=== PATIENT | female | born 1950 | race Hispanic/Latino ===

== ENCOUNTER 2021-02-09 10:40 | Outpatient (CLI) | payer MEDICARE, OTHER | END 2021-02-09 10:41 | disposition home or self-care (01) | LOC: CSHULT 10:40 | PROVIDERS: ATTEND Internal Medicine Nephrology | DX: N18.1 Chronic kidney disease, stage 1 (principal); Q61.9 Cystic kidney disease, unspecified | CPT/HCPCS: 76770 ==

== ENCOUNTER 2021-08-12 16:02 | Observation (INO) | payer MEDICARE, OTHER ==
[2021-08-12] MEDS ORDERED: Nitroglycerin 0.4 MG TAB (25 Tab Bottle) SL PRN (17:24)
[2021-08-12] MEDS ORDERED: Ondansetron ODT 4 MG TAB PO PRN (17:29)
[2021-08-12] MEDS ORDERED: Acetaminophen 325 MG TAB PO PRN (17:29)
[2021-08-12] MEDS ORDERED: Ondansetron PF 4 MG/2 ML Vial IVP PRN (17:29)
[2021-08-12 18:33] VITALS: BMI 27.3
[2021-08-12 19:06] LABS: Lipase 76 U/L (8-78); Magnesium 2.2 mg/dL (1.6-2.6)
[2021-08-12 19:12] LABS: Troponin I Less than 0.010 ng/mL (< 0.028)
[2021-08-12] MEDS: HYDROcodone/Acetaminophen 5/325 mg Tablet PO PRN (20:32)
[2021-08-12] MEDS ORDERED: Atorvastatin Calcium 40 MG TAB PO SCH (21:00)
[2021-08-12] MEDS ORDERED: Nitroglycerin 2% Ointment 1 INCH/1 GM Packet TOP SCH (22:00)
[2021-08-12] MEDS: Nitroglycerin 2% Ointment 1 INCH/1 GM Packet TOP SCH (22:31)
[2021-08-13] MEDS: Nitroglycerin 2% Ointment 1 INCH/1 GM Packet TOP SCH ×2 (05:06→13:46)
[2021-08-13 05:12] LABS: #Eosinphils 0.4 10x3/uL (0.0-0.5); #Monocytes 0.7 10x3/uL (0.0-1.1); %Basophils 0.5 % (0.0-2.0); %Lymphocytes 30.4 % (18.0-47.0); %Monocytes 11.7 % (0.0-10.0); %Neutrophils 50.9 % (40.0-75.0); Hemoglobin 10.3 g/dL (12.0-15.5); Mean Corpuscular HGB CONC 32.8 g/dL (32.0-36.0); Mean Corpuscular Hemoglobin 30.6 pg (27.0-33.0); Mean Corpuscular Volume 93.2 fl (81.6-98.3); Mean Platelet Volume 10.2 fl (7.4-10.4); Platelet Count 258 10x3/uL (150-450); RBC Distribution Width 13.2 % (11.5-14.5); Red Blood Cell (RBC) Count 3.37 10x6/uL (3.90-5.03); White Blood Cell (WBC) Count 5.8 10x3/uL (3.5-10.5)
[2021-08-13 05:37] LABS: Anion Gap 9 mmol/L (10-20); BUN (Urea Nitrogen) 11 mg/dL (9.8-20.1); Calc. Creatinine Clearance 70 mL/min (70-130); Calcium 8.7 mg/dL (7.8-10.44); Carbon Dioxide 28 mmol/L (23-31); Cardiac Risk 2.8 (Less than 4.5); Chloride 106 mmol/L (98-107); Cholesterol 119 mg/dl (< 200 Desired); Glucose 86 mg/dL (80-115); HDL Cholesterol 42 mg/dL (>60 Neg Risk); LDL Cholesterol, Calculated 62 mg/dL; Potassium 4.3 mmol/L (3.5-5.1); Sodium 139 mmol/L (136-145); Triglycerides 77 mg/dL (Less than 150)
[2021-08-13] MEDS: Carvedilol 3.125 MG TAB PO SCH ×2 (08:16→16:19)
[2021-08-13] MEDS: HYDROcodone/Acetaminophen 5/325 mg Tablet PO PRN (08:17)
[2021-08-13] MEDS ORDERED: FLUTICASONE PO SCH (09:00)
[2021-08-13] MEDS ORDERED: [UNRECOGNIZED DRUG - OTHER] PO SCH (09:00)
[2021-08-13] MEDS ORDERED: Aspirin Chewable 81 MG TAB PO SCH (09:00)
[2021-08-13] MEDS ORDERED: Amlodipine 5 MG TAB PO SCH (09:00)
[2021-08-13] MEDS ORDERED: Cholecalciferol 1,000 UNITS (25 MCG) TAB PO SCH (09:00)
[2021-08-13] MEDS ORDERED: SALMETEROL PO SCH (09:00)
[2021-08-13] MEDS ORDERED: tiZANidine HCl 4 MG TAB PO PRN (09:00)
[2021-08-13] MEDS ORDERED: Losartan 25 MG TAB PO SCH (09:00)
[2021-08-13] MEDS ORDERED: Hydroxychloroquine Sulfate 200 MG TAB PO SCH (09:00)
[2021-08-13] MEDS ORDERED: Communication Order-Pharmacy FS SCH (10:15)
[2021-08-13 11:03] LABS: INR-International Normal Ratio 0.9; PTT 27.3 sec (22.0-33.0); Prothrombin Time 10.5 sec (9.5-12.1)
[2021-08-13] MEDS ORDERED: Verapamil 5 MG/2 ML VIAL ONE (11:55)
[2021-08-13] MEDS ORDERED: Nitroglycerin 50 MG/250 ML BOT 250 ML ONE (11:55)
[2021-08-13] MEDS ORDERED: Heparin 10,000 UNITS/ 10 ML VIAL ONE (11:55)
[2021-08-13] MEDS ORDERED: Bivalirudin 250 MG VIAL ONE (12:03)
[2021-08-13] MEDS ORDERED: Adenosine 6 MG/2 ML VIAL ONE (12:03)
[2021-08-13] MEDS ORDERED: Fentanyl 100 MCG/2 ML VIAL ONE (12:04)
[2021-08-13] MEDS ORDERED: Midazolam HCl 2 mg/2 ml Vial ONE (12:05)
[2021-08-13] MEDS ORDERED: Lidocaine 1% PF 5 ML VIAL ONE (12:05)
[2021-08-13] MEDS ORDERED: Sodium Chloride 0.9% 200 ML IV PRN (13:01)
[2021-08-13] MEDS ORDERED: Acetaminophen/Codeine 30-300mg Tablet PO PRN ×2 (13:01)
[2021-08-13] MEDS ORDERED: Nitroglycerin 0.4 MG TAB (25 Tab Bottle) SL PRN (13:01)
[2021-08-13 16:21] VITALS: BP 118/51; TEMP 98.6
[2021-08-13] MEDS ORDERED: Atorvastatin Calcium 40 MG TAB PO SCH (21:00)
== END 2021-08-13 18:30 | disposition home or self-care (01) ==
LOC: CSHTELE 16:58
PROVIDERS: ADMIT Family Medicine; ATTEND Nurse Practitioner Family
DX: R07.9 Chest pain, unspecified (principal); I25.10 Atherosclerotic heart disease of native coronary artery without angina pectoris; J44.9 Chronic obstructive pulmonary disease, unspecified; I10 Essential (primary) hypertension; E78.5 Hyperlipidemia, unspecified; M06.9 Rheumatoid arthritis, unspecified; Z20.822 Contact with and (suspected) exposure to COVID-19; M81.0 Age-related osteoporosis without current pathological fracture; Z79.51 Long term (current) use of inhaled steroids; Z87.891 Personal history of nicotine dependence; M54.42 Lumbago with sciatica, left side
CPT/HCPCS: 80048; 80061; 83690; 83735; 83880; 84443; 84484; 85025; 85610; 85730; 93306; 93458; G0378 ×2; 36415; 99152; J0153; J0583; J1644; J2250; J3010

== ENCOUNTER 2021-11-18 14:56 | Outpatient (CLI) | payer MEDICARE, OTHER | END 2021-11-18 14:57 | disposition home or self-care (01) | LOC: CSHULT 14:56 | PROVIDERS: ATTEND Urology | DX: N28.1 Cyst of kidney, acquired (principal) | CPT/HCPCS: 76770 ==

== ENCOUNTER 2025-05-01 10:53 | Outpatient (CLI) | payer MEDICARE, OTHER | END 2025-05-01 10:54 | disposition home or self-care (01) | LOC: CSHCP 10:53 | PROVIDERS: ATTEND Internal Medicine | DX: J44.9 Chronic obstructive pulmonary disease, unspecified (principal) | CPT/HCPCS: 94060; 94664; 94726; 94729; 94760 ==

== ENCOUNTER 2025-06-17 09:48 | Outpatient (CLI) | payer MEDICARE, OTHER ==
[2025-06-17 10:51] LABS: #Basophils 0.04 10x3/uL (0.0-0.2); #Eosinophils 0.22 10x3/uL (0.0-0.5); #Monocytes 0.53 10x3/uL (0.0-1.1); #Neutrophils 4.42 10x3/uL (1.5-8.4); %Basophils 0.6 % (0.0-2.0); %Eosinophils 3.5 % (0.0-6.0); %Lymphocytes 15.6 % (18.0-47.0); %Monocytes 8.5 % (0.0-10.0); %Neutrophils 71.5 % (40.0-75.0); Hematocrit 38.4 % (34.9-44.5); Hemoglobin 13.2 g/dL (12.0-15.5); Mean Corpuscular Hemoglobin 31.0 pg (27.0-33.0); Mean Corpuscular Volume 90.1 fL (81.6-98.3); Platelet Count 307 10x3/uL (150-450); Red Blood Cell (RBC) Count 4.26 10x6/uL (3.90-5.03); White Blood Cell (WBC) Count 6.20 10x3/uL (3.5-10.5)
[2025-06-17 11:13] LABS: ALT (SGPT) 23 U/L (Less than 34); AST (SGOT) 26 U/L (11-34); Albumin 4.1 g/dL (3.1-4.5); Alkaline Phosphatase 67 U/L (40-110); Anion Gap 14 mmol/L (10-20); BUN (Urea Nitrogen) 11 mg/dL (9.8-20.1); Bilirubin, Direct 0.3 mg/dL (0.1-0.3); Bilirubin, Total 1.0 mg/dL (0.3-1.2); Calc. Creatinine Clearance 0 mL/min (70-130); Calcium 10.4 mg/dL (7.8-10.44); Carbon Dioxide 24 mmol/L (23-31); Chloride 104 mmol/L (98-107); Glucose 86 mg/dL (83-110); Potassium 4.2 mmol/L (3.5-5.1); Sodium 138 mmol/L (136-145)
== END 2025-06-17 09:49 | disposition home or self-care (01) ==
LOC: CSHLAB 09:48
PROVIDERS: ATTEND Surgery
DX: Z01.818 Encounter for other preprocedural examination (principal); K80.20 Calculus of gallbladder without cholecystitis without obstruction; R94.31 Abnormal electrocardiogram [ECG] [EKG]
CPT/HCPCS: 80048; 80076; 85025; 93005; 93010

== ENCOUNTER 2025-06-20 09:03 | Day surgery (SDC) | payer MEDICARE, OTHER ==
[2025-06-17 10:21] VITALS: BMI 25.7
[2025-06-20] MEDS ORDERED: PROPOFOL 20 ML ONE (10:02)
[2025-06-20] MEDS ORDERED: Lidocaine 1% PF 5 ML VIAL ONE (10:04)
[2025-06-20] MEDS ORDERED: Rocuronium Bromide 10 MG/ML (10ML VIAL) ONE (10:04)
[2025-06-20] MEDS ORDERED: Bupivacaine/Epinephrine 0.25% 30 ML VIAL ONE (10:24)
[2025-06-20] MEDS ORDERED: CEFAZOLIN 2 GM VIAL ONE (10:32)
[2025-06-20] MEDS ORDERED: Ondansetron PF 4 MG/2 ML Vial ONE (11:02)
[2025-06-20] MEDS ORDERED: SUGAMMADEX SODIUM 200 MG/2 ML VIAL ONE (11:12)
[2025-06-20] MEDS ORDERED: HYDROcodone/Acetaminophen 5/325 mg Tablet ONE (13:14)
== END 2025-06-20 14:00 | disposition home or self-care (01) ==
LOC: CSHSDC 09:03
PROVIDERS: ATTEND Surgery
PROC: 0FT44ZZ Resection of Gallbladder, Percutaneous Endoscopic Approach (ICD-10-PCS; principal; 2025-06-20)
DX: K80.10 Calculus of gallbladder with chronic cholecystitis without obstruction (principal); I10 Essential (primary) hypertension; I25.10 Atherosclerotic heart disease of native coronary artery without angina pectoris; E78.5 Hyperlipidemia, unspecified; K21.9 Gastro-esophageal reflux disease without esophagitis; M81.0 Age-related osteoporosis without current pathological fracture; J44.9 Chronic obstructive pulmonary disease, unspecified; M06.9 Rheumatoid arthritis, unspecified; Z98.51 Tubal ligation status; Z96.652 Presence of left artificial knee joint; Z87.891 Personal history of nicotine dependence; Z98.890 Other specified postprocedural states; Z91.040 Latex allergy status; Z79.899 Other long term (current) drug therapy
CPT/HCPCS: 47562; C9776; 88304; C1889; J1100; J2704; S2900